=== PATIENT | male | born 1990 | race Caucasian/White ===

== ENCOUNTER 2017-11-24 22:19 | Emergency (ER) | payer SELFPAY ==
[2017-11-24] MEDS: FLUORESCEIN OPHTH TEST STRIP. OU (22:47)
[2017-11-24] MEDS: TETRACAINE 0.5% OPHTH SOLUTION 4ML BOTTLE. OU (22:48)
== END 2017-11-24 23:06 | disposition home or self-care (01) ==
LOC: ER 22:19
DX: H57.8 Other specified disorders of eye and adnexa (principal); H57.13 Ocular pain, bilateral
CPT/HCPCS: 99283